=== PATIENT | female | born 1960 | race Caucasian/White ===

== ENCOUNTER 2016-08-19 15:02 | Emergency (ER) | payer OTHER ==
[~2016-08-19] VITALS: Ht 160 cm; Wt 103.4 kg
[2016-08-19 15:09] VITALS: BP 147/96
[2016-08-19] MEDS ORDERED: KETOROLAC 30 MG/1 ML ONE (15:25)
[2016-08-19] MEDS ORDERED: METHOCARBAMOL 750 MG TABLET ONE (15:25)
[2016-08-19] MEDS ORDERED: KETOROLAC 30 MG/1 ML IM ONE (15:30)
[2016-08-19] MEDS ORDERED: METHOCARBAMOL 750 MG TABLET PO ONE (15:30)
== END 2016-08-19 16:58 | disposition home or self-care (01) ==
LOC: ED 16:45
DX: S29.012A Strain of muscle and tendon of back wall of thorax, initial encounter (principal); I10 Essential (primary) hypertension; E11.9 Type 2 diabetes mellitus without complications; J45.909 Unspecified asthma, uncomplicated; Z88.0 Allergy status to penicillin; Z88.1 Allergy status to other antibiotic agents; Z88.8 Allergy status to other drugs, medicaments and biological substances; X58.XXXA Exposure to other specified factors, initial encounter; Y93.89 Activity, other specified; Y92.89 Other specified places as the place of occurrence of the external cause; Y99.9 Unspecified external cause status
CPT/HCPCS: 96372; 99283; J1885

== ENCOUNTER → 2018-05-18 | Outpatient (CLI) | payer OTHER | END | disposition home or self-care (01) | LOC: CFH 11:41 | PROVIDERS: ATTEND Nurse Practitioner Family | DX: Z13.820 Encounter for screening for osteoporosis (principal); S52.501D Unspecified fracture of the lower end of right radius, subsequent encounter for closed fracture with routine healing; N95.9 Unspecified menopausal and perimenopausal disorder; X58.XXXD Exposure to other specified factors, subsequent encounter | CPT/HCPCS: 77080 ==

== ENCOUNTER 2019-03-25 09:06 | Outpatient (CLI) | payer OTHER ==
[2019-03-25] MEDS ORDERED: FENTANYL PF 100 MCG/2ML ONE (10:27)
[2019-03-25] MEDS ORDERED: FLUMAZENIL 0.1 MG/1 ML, 5ML ONE (10:28)
[2019-03-25] MEDS ORDERED: MIDAZOLAM 1 MG/ML, 5ML ONE (10:28)
[2019-03-25] MEDS ORDERED: NALOXONE 1 MG/ML, 2ML ONE (10:28)
== END 2019-03-25 23:59 | disposition home or self-care (01) ==
LOC: RAD 09:06
PROVIDERS: ATTEND Physician Assistant Surgical
DX: M25.551 Pain in right hip (principal)
CPT/HCPCS: 73221; 99156; 99157; J2250; J3010; J2310

== ENCOUNTER 2019-03-28 08:26 | Day surgery (SDC) | payer OTHER ==
[~2019-03-28] VITALS: Ht 162.6 cm; Wt 103.5 kg
[2019-03-28] MEDS ORDERED: SODIUM CHLORIDE 0.9% 1,000 ML IV SCH (09:05)
[2019-03-28 09:27] VITALS: BP 154/92
[2019-03-28] MEDS ORDERED: FLUT1AER INH (09:30)
[2019-03-28] MEDS ORDERED: PLEASE ENTER HEIGHT AND WEIGHT MC SCH (09:30)
[2019-03-28] MEDS ORDERED: TRAM50TA2 PO (09:30)
[2019-03-28] MEDS ORDERED: LOSA100T14 PO (09:30)
[2019-03-28] MEDS ORDERED: ALBU1.25 NEB (09:30)
[2019-03-28] MEDS ORDERED: TRAZ-137 PO (09:30)
[2019-03-28] MEDS ORDERED: ALBU8.5H8 INH (09:30)
[2019-03-28 09:35] VITALS: BP 154/92
[2019-03-28] MEDS ORDERED: hydrALAzine 20 MG/ML, 1ML IV PRN (12:00)
[2019-03-28] MEDS ORDERED: HYDROmorphone 2 MG/ML, 1ML IVPush PRN (12:00)
[2019-03-28] MEDS ORDERED: MEPERIDINE/PF 25MG/ML,1ML IVPush PRN (12:00)
[2019-03-28] MEDS ORDERED: PROMETHAZINE 25 MG/ML, 1ML IV PRN (12:00)
[2019-03-28] MEDS ORDERED: FENTANYL PF 100 MCG/2ML IV PRN (12:00)
[2019-03-28] MEDS ORDERED: OXYcodone 5 MG/5 ML ORAL.SOL UDC PO PRN (12:00)
[2019-03-28] MEDS ORDERED: ALBUTEROL/IPRATROPIUM 2.5MG/0.5MG, 3 ML NPPB PRN (12:00)
== END 2019-03-28 12:55 | disposition home or self-care (01) ==
LOC: OUT 08:26 → EDSTATUS 10:30 → OUT 12:55
PROVIDERS: ATTEND Physician Assistant Surgical
DX: M75.111 Incomplete rotator cuff tear or rupture of right shoulder, not specified as traumatic (principal); M19.011 Primary osteoarthritis, right shoulder